=== PATIENT | male | born 1995 | race African-American/Black ===

== ENCOUNTER 2017-05-21 20:11 | Emergency (ER) | payer SELFPAY ==
[~2017-05-21] VITALS: Ht 167.6 cm; Wt 84.0 kg
[2017-05-21 22:42] LABS: HEMATOCRIT 37.9 % (38.0-50.0); MCH 30.2 PG (29.0-34.0); MCHC 37.5 G/DL (30.0-36.0); MCV 80.6 FL (86-99); MEAN PLAT.VOLUME 9.8 uM^3 (9.0-12.4); PLATELET COUNT 283 K/uL (156-360); RBC DIS.WIDTH-CV 12.4 % (11.8-14.6); RBC DIS.WIDTH-SD 36.3 % (39-53); WHITE BLOOD COUNT 9.5 K/uL (4.1-10.2)
[2017-05-21 22:53] LABS: CHLORIDE 105 mEq/L (99-109); POTASSIUM 3.8 mEq/L (3.7-5.4)
[2017-05-21 22:54] LABS: SODIUM 137 mEq/L (136-147)
[2017-05-21 22:55] LABS: GLUCOSE 105 mg/dL (70-99)
[2017-05-21 22:57] LABS: ANION GAP 10 MEQ/L (2-14)
[2017-05-21 22:59] LABS: GFR ESTIMATE (CALCULATED) > 59 mL/min/
[2017-05-21 23:00] LABS: UREA NITROGEN (BUN) 22 mg/dL (9-23)
[2017-05-21 23:03] LABS: TROP-I INTERPRETATION NEGATIVE; TROPONIN-I < 0.01 ng/mL (0.0-0.30)
[2017-05-21 23:50] VITALS: BP 146/82
== END 2017-05-21 23:53 | disposition home or self-care (01) ==
LOC: EME 20:11
DX: R07.9 Chest pain, unspecified (principal); J45.909 Unspecified asthma, uncomplicated; F17.200 Nicotine dependence, unspecified, uncomplicated
CPT/HCPCS: 71020; 80048; 84484; 85027; 93005; 99281; 99285

== ENCOUNTER 2017-08-06 18:54 | Emergency (ER) | payer SELFPAY ==
[~2017-08-06] VITALS: Ht 167.6 cm; Wt 81.3 kg
[2017-08-06 20:15] LABS: HEMATOCRIT 40.6 % (38.0-50.0); MCH 29.9 PG (29.0-34.0); MCHC 36.5 G/DL (30.0-36.0); MEAN PLAT.VOLUME 9.9 uM^3 (9.0-12.4); PLATELET COUNT 276 K/uL (156-360); RBC DIS.WIDTH-CV 12.6 % (11.8-14.6); RBC DIS.WIDTH-SD 37.9 % (39-53); RED BLOOD COUNT 4.95 M/uL (4.00-5.50); WHITE BLOOD COUNT 7.6 K/uL (4.1-10.2)
[2017-08-06 20:23] LABS: CHLORIDE 104 mEq/L (99-109); POTASSIUM 3.9 mEq/L (3.7-5.4); SODIUM 138 mEq/L (136-147)
[2017-08-06 20:26] LABS: GLUCOSE 89 mg/dL (70-99)
[2017-08-06 20:27] LABS: ANION GAP 8 MEQ/L (2-14); TOTAL BILIRUBIN 0.9 mg/dL (0.0-1.0)
[2017-08-06 20:29] LABS: ALKALINE PHOSPHATASE 136 IU/L (3-129); GFR ESTIMATE (CALCULATED) > 59 mL/min/
[2017-08-06 20:30] LABS: UREA NITROGEN (BUN) 9 mg/dL (9-23)
[2017-08-06 20:31] LABS: DIRECT BILIRUBIN 0.4 mg/dL (0.0-0.3)
[2017-08-06 20:33] LABS: LIPASE 29 U/L (1.0-51.0)
[2017-08-06] MEDS ORDERED: ZOFRAN4 MG PO (20:41)
[2017-08-06 21:21] VITALS: BP 141/74
== END 2017-08-06 21:21 | disposition home or self-care (01) ==
LOC: EME 18:54
PROVIDERS: Emergency Medicine
DX: R11.2 Nausea with vomiting, unspecified (principal); R19.7 Diarrhea, unspecified; R42 Dizziness and giddiness; F17.200 Nicotine dependence, unspecified, uncomplicated
CPT/HCPCS: 80048; 80076; 83690; 85027; 99281; 99283